=== PATIENT | male | born 1985 ===

== ENCOUNTER 2020-10-05 21:43 | Emergency (ER) | payer SELFPAY ==
[2020-10-05 23:20] VITALS: BP 105/75
--- NOTE | 2020-10-05 23:42 | Event Note ---
ED Screening Note Date of service: 10/05/20 Time: 23:41 ED Screening Note: 35-year-old male with a psychiatric history presents to ED with suicidal ideation with a plan to taking pills This initial assessment/diagnostic orders/clinical plan/treatment(s) is/are subject to change based on patients health status, clinical progression and re- assessment by fellow clinical providers in the ED. Further treatment and workup at subsequent clinical providers discretion. Patient/guardian urged not to elope from the ED as their condition may be serious if not clinically assessed and managed. Initial orders include: Labs ordered.
[2020-10-05 23:54] LABS: Basophils # (Auto) 0.1 K/mm3 (0.0-0.1); Basophils % (Auto) 0.8 % (0.0-1.8); Eosinophils # (Auto) 0.1 K/mm3 (0.0-0.4); Eosinophils % (Auto) 0.6 % (0.0-4.3); Hematocrit 41.6 % (35.5-45.6); Hemoglobin 14.4 gm/dl (11.8-15.2); Lymphocytes # (Auto) 3.1 K/mm3 (1.2-5.4); Lymphocytes % (Auto) 26.3 % (13.4-35.0); Mean Corpuscular HGB Conc 35 % (32-34); Mean Corpuscular Volume 94 fl (84-94); Monocytes # (Auto) 0.9 K/mm3 (0.0-0.8); Monocytes % (Auto) 7.8 % (0.0-7.3); Platelet Count 438 K/mm3 (140-440); Red Blood Count 4.42 M/mm3 (3.65-5.03); Red Cell Distribution Width 13.1 % (13.2-15.2)
[2020-10-05 23:57] LABS: BUN/Creatinine Ratio 18; Blood Urea Nitrogen 18 mg/dL (9-20); Calcium 9.4 mg/dL (8.4-10.2); Hemolysis Index 9
== END 2020-10-06 00:45 | disposition left against medical advice (07) ==
LOC: ED 21:43
DX: F32.9 Major depressive disorder, single episode, unspecified (principal); Z53.21 Procedure and treatment not carried out due to patient leaving prior to being seen by health care provider
CPT/HCPCS: 36415; 80048; 80320; 85025; G0480

== ENCOUNTER 2020-10-06 07:48 | Emergency (ER) | payer SELFPAY ==
--- NOTE | 2020-10-06 08:57 | Emergency Department Report ---
ED Psych HPI - General Chief Complaint: Psych Stated Complaint: PTSD;MENTAL HEALTH Time Seen by Provider: 10/06/20 08:51 Source: patient Mode of arrival: Ambulatory - History of Present Illness Initial Comments: This is a 35-year-old man who has a long history of bipolar disorder. He states he is compliant with his medicines to include lithium. He states his last admission to a [facility]. He only reports one other mental health admission "when I was a child". He states he saw his mental health provider last 2 weeks ago. Yesterday he told them that he had suicidal ideation. Thereby it was recommended that he come to the emergency department. He does express a desire to "hurt myself". He did not express a specific plan. MD Complaint: suicidal ideation -: Gradual, week(s) Associated Psychiatric Symptoms: suicidal ideation History of same: Yes Quality: intermittent Improves With: none Worsens With: none Associated Symptoms: denies other symptoms Treatments Prior to Arrival: none If Self Harm: admits thoughts of - Related Data Allergies Allergy/AdvReac Type Severity Reaction Status Date / Time Penicillins Allergy Unknown Verified 10/05/20 23:17 ED Review of Systems ROS: Stated complaint: PTSD;MENTAL HEALTH Other details as noted in HPI Constitutional: chills. denies: fever Eyes: denies: eye pain, vision change ENT: denies: ear pain, throat pain Respiratory: denies: cough, shortness of breath, wheezing Cardiovascular: denies: chest pain, palpitations Endocrine: no symptoms reported Gastrointestinal: denies: abdominal pain, nausea, diarrhea Genitourinary: denies: urgency, dysuria Musculoskeletal: denies: back pain, joint swelling, arthralgia Skin: denies: rash, lesions Neurological: denies: headache, weakness, paresthesias Psychiatric: denies: anxiety, depression Hematological/Lymphatic: denies: easy bleeding, easy bruising ED Past Medical Hx - Past Medical History Previous Medical History?: Yes Hx Psychiatric Treatment: Yes (PTSD, manic bipolar) - Surgical History Past Surgical History?: No - Social History Smoking Status: Current Every Day Smoker Substance Use Type: Heroin ED Physical Exam - General Limitations: No Limitations General appearance: alert, in no apparent distress - Head Head exam: Present: atraumatic, normocephalic - Eye Eye exam: Present: normal appearance. Absent: scleral icterus - ENT ENT exam: Present: mucous membranes moist - Neck Neck exam: Present: normal inspection - Respiratory Respiratory exam: Present: normal lung sounds bilaterally. Absent: respiratory distress - Cardiovascular Cardiovascular Exam: Present: regular rate, normal rhythm. Absent: systolic murmur, diastolic murmur, rubs, gallop - GI/Abdominal GI/Abdominal exam: Present: soft, normal bowel sounds. Absent: distended, tenderness, guarding, rebound - Rectal Rectal exam: Present: deferred - Extremities Exam Extremities exam: Present: normal inspection - Back Exam Back exam: Present: normal inspection - Neurological Exam Neurological exam: Present: alert, oriented X3, CN II-XII intact. Absent: motor sensory deficit - Psychiatric Psychiatric exam: Present: normal affect, normal mood - Skin Skin exam: Present: warm, dry, intact, normal color. Absent: rash ED Course Vital Signs 10/06/20 07:50 Temperature 98.0 F Pulse Rate 72 Respiratory 18 Rate Blood Pressure 125/74 O2 Sat by Pulse 100 Oximetry ED Medical Decision Making - Lab Data Result diagrams: 10/06/20 09:33 10/06/20 09:33 Critical care attestation.: If time is entered above; I have spent that time in minutes in the direct care of this critically ill patient, excluding procedure time. ED Disposition Clinical Impression: Schizophrenia, paranoid type, Medical clearance for psychiatric admission, Suicidal ideation Disposition: [id number]/[id number] PSY HOSP/PSY UNIT Is pt being admited?: No Does the pt Need Aspirin: No Condition: Stable Referrals: PRIMARY CARE, [Primary Care Provider] - 3-5 Days Time of Disposition: 15:14
[2020-10-06 10:26] LABS: Basophils # (Auto) 0.1 K/mm3 (0.0-0.1); Basophils % (Auto) 0.6 % (0.0-1.8); Eosinophils % (Auto) 0.4 % (0.0-4.3); Hematocrit 44.1 % (35.5-45.6); Lymphocytes # (Auto) 2.2 K/mm3 (1.2-5.4); Lymphocytes % (Auto) 18.7 % (13.4-35.0); Mean Corpuscular HGB Conc 34 % (32-34); Mean Corpuscular Volume 95 fl (84-94); Monocytes # (Auto) 0.8 K/mm3 (0.0-0.8); Monocytes % (Auto) 6.6 % (0.0-7.3); Platelet Count 437 K/mm3 (140-440); Red Blood Count 4.63 M/mm3 (3.65-5.03); Red Cell Distribution Width 13.2 % (13.2-15.2)
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
[2020-10-06 10:54] LABS: BUN/Creatinine Ratio 19; Blood Urea Nitrogen 17 mg/dL (9-20); Calcium 9.4 mg/dL (8.4-10.2); Hemolysis Index 2
[2020-10-06] MEDS: LITHIUM CARBONATE 300 MG CAP PO SCH ×2 (14:32→21:37)
[2020-10-06 18:24] LABS: Benzodiazepines Screen,Urine Negative; Cocaine Screen,Urine Negative; Methadone Screen,Urine Negative; Opiate Screen,Urine Negative
[2020-10-06 18:40] LABS: Amphetamine Screen,Urine Positive; Cannabinoid Screen,Urine Positive
[2020-10-06 19:33] LABS: Bilirubin,Urine NEG (Negative); Blood,Urine NEG (Negative); Calcium Oxalate Crystals,Urine 1+; Color,Urine Yellow (Yellow); Mucus,Urine FEW /HPF; Protein,Urine <15 mg/dL mg/dL (Negative)
[2020-10-06] MEDS: risperiDONE 0.25 MG TAB PO SCH (21:38)
[2020-10-06] MEDS: traZODone 50 MG TAB PO SCH (21:39)
[2020-10-07] MEDS: LITHIUM CARBONATE 300 MG CAP PO SCH ×3 (09:25→21:46)
[2020-10-07] MEDS: risperiDONE 0.25 MG TAB PO SCH ×2 (09:56→21:47)
[2020-10-07 21:01] LABS: Basophils # (Auto) 0.1 K/mm3 (0.0-0.1); Basophils % (Auto) 1.3 % (0.0-1.8); Eosinophils % (Auto) 0.4 % (0.0-4.3); Lymphocytes # (Auto) 2.6 K/mm3 (1.2-5.4); Lymphocytes % (Auto) 25.8 % (13.4-35.0); Mean Corpuscular HGB Conc 36 % (32-34); Mean Corpuscular Volume 93 fl (84-94); Monocytes # (Auto) 0.6 K/mm3 (0.0-0.8); Monocytes % (Auto) 5.8 % (0.0-7.3); Platelet Count 436 K/mm3 (140-440); Red Blood Count 4.39 M/mm3 (3.65-5.03); Red Cell Distribution Width 12.7 % (13.2-15.2)
[2020-10-07 21:04] LABS: Hematocrit 40.9 % (35.5-45.6); Hemoglobin 14.7 gm/dl (11.8-15.2)
[2020-10-07] MEDS: traZODone 50 MG TAB PO SCH (21:48)
[2020-10-08] MEDS: LITHIUM CARBONATE 300 MG CAP PO SCH ×2 (09:47→14:48)
[2020-10-08] MEDS: risperiDONE 0.25 MG TAB PO SCH (09:47)
[2020-10-08 20:07] VITALS: BP 132/78
== END 2020-10-08 19:59 ==
LOC: ED 07:48
DX: F20.0 Paranoid schizophrenia (principal); F17.200 Nicotine dependence, unspecified, uncomplicated; Z04.6 Encounter for general psychiatric examination, requested by authority; Z88.0 Allergy status to penicillin; Z20.828 Contact with and (suspected) exposure to other viral communicable diseases
CPT/HCPCS: 36415; 80048; 80178; 80307; 81001; 85025; 93005; 99285; U0003; 80320; G0480

== ENCOUNTER 2022-03-20 13:45 | Emergency (ER) | payer SELFPAY ==
[2022-03-20 15:34] VITALS: BP 130/90
[2022-03-20] MEDS ORDERED: TETANUS,DIPH,PERTUSS(ACELL) VACCINE 0.5 ML SYRINGE IM ONE (21:00)
[2022-03-20] MEDS ORDERED: SULFAMETHOXAZOLE/TRIMETHOPRIM 800/160MG DS TAB PO ONE (21:00)
[2022-03-20] MEDS ORDERED: CLINDAMYCIN 300 MG CAP PO ONE (21:00)
[2022-03-20] MEDS ORDERED: traMADol 50 MG TAB PO ONE (21:00)
--- NOTE | 2022-03-20 21:10 | Emergency Department Report ---
ED Animal Bite HPI - General Chief Complaint: Animal Bite Stated Complaint: DOMESTIC DOG ATTACK Time Seen by Provider: 03/20/22 21:00 Source: patient Mode of arrival: Ambulatory Limitations: No Limitations - History of Present Illness Initial Comments: Patient 36-year-old male, who is penicillin allergic, who presents for right forearm dog bite today. States he was putting his dog in the garage grabbed a dog stroker, and dog snapped his arm x1. This is a domestic dog, rabies shots are up-to-date. Bleeding was controlled on scene by direct pressure patient states 4 puncture wounds. There is no nerve muscle or tendon damage range of motion remains intact there is minimal swelling. MD Complaint: animal bite - Related Data Previous Rx's Medication Instructions Recorded Last Taken Type Clindamycin [Clindamycin CAP] 300 mg PO Q8H 7 Days #21 cap 03/20/22 Unknown Rx Sulfamethoxazole/Trimethoprim 1 each PO BID 7 Days #14 tab 03/20/22 Unknown Rx [Bactrim DS TAB] traMADoL [Ultram] 50 mg PO Q6HR PRN #12 tablet 03/20/22 Unknown Rx Allergies Allergy/AdvReac Type Severity Reaction Status Date / Time Penicillins Allergy Unknown Verified 10/05/20 23:17 ED Review of Systems ROS: Stated complaint: DOMESTIC DOG ATTACK Other details as noted in HPI Constitutional: denies: chills, fever Eyes: denies: eye pain, eye discharge, vision change ENT: denies: ear pain, throat pain Respiratory: denies: cough, shortness of breath, wheezing Cardiovascular: denies: chest pain, palpitations Endocrine: no symptoms reported Gastrointestinal: denies: abdominal pain, nausea, diarrhea Genitourinary: denies: urgency, dysuria Musculoskeletal: other (Dog for puncture wound) Skin: denies: rash, lesions Neurological: denies: headache, weakness, paresthesias Psychiatric: denies: anxiety, depression Hematological/Lymphatic: denies: easy bleeding, easy bruising ED Past Medical Hx - Past Medical History Previous Medical History?: Yes Hx Psychiatric Treatment: Yes (PTSD, manic bipolar) Hx Asthma: Yes - Surgical History Past Surgical History?: No - Social History Smoking Status: Current Every Day Smoker Substance Use Type: None - Medications Home Medications: Home Medications Medication Instructions Recorded Confirmed Last Taken Type Clindamycin [Clindamycin CAP] 300 mg PO Q8H 7 Days #21 cap 03/20/22 Unknown Rx Sulfamethoxazole/Trimethoprim 1 each PO BID 7 Days #14 tab 03/20/22 Unknown Rx [Bactrim DS TAB] traMADoL [Ultram] 50 mg PO Q6HR PRN #12 tablet 03/20/22 Unknown Rx ED Physical Exam - General Limitations: No Limitations General appearance: alert, in no apparent distress - Head Head exam: Present: normocephalic, normal inspection - Eye Eye exam: Present: normal appearance, EOMI Pupils: Present: normal accommodation - ENT ENT exam: Present: mucous membranes moist - Neck Neck exam: Present: normal inspection, full ROM. Absent: tenderness, lymphadenopathy - Respiratory Respiratory exam: Present: normal lung sounds bilaterally. Absent: respiratory distress, wheezes, stridor, chest wall tenderness - Cardiovascular Cardiovascular Exam: Present: regular rate, normal rhythm, normal heart sounds. Absent: systolic murmur, diastolic murmur, rubs, gallop - GI/Abdominal GI/Abdominal exam: Present: soft, normal bowel sounds. Absent: distended, tenderness - Rectal Rectal exam: Present: deferred - Extremities Exam Extremities exam: Present: normal inspection, normal capillary refill - Expanded Upper Extremity Exam Right Forearm Wrist exam: Present: tenderness, swelling, erythema. Absent: abrasion, laceration, ecchymosis, deformity, crepidus, dislocation, tenderness over anatomical snuff box, pain with axial thumb loading Hand Wrist exam: Present: full ROM. Absent: tenderness, swelling Neuro motor exam: Present: wrist extension intact, thumb opposition intact, thumb IP flexion intact, thumb adduction intact, fingers 2-5 abduction intact Neurosensory exam: Present: radial nerve intact Vascular: Present: normal capillary refill - Back Exam Back exam: Present: normal inspection, full ROM. Absent: CVA tenderness (R), CVA tenderness (L) - Neurological Exam Neurological exam: Present: alert, oriented X3, CN II-XII intact, normal gait, reflexes normal. Absent: motor sensory deficit - Expanded Neurological Exam Expanded Patient oriented to: Present: person, place, time Speech: Present: fluid speech Motor strength exam: RUE: 5, LUE: 5, RLE: 5, LLE: 5 Best Eye Response ([place]): (4) open spontaneously Best Motor Response ([place]): (6) obeys commands Best Verbal Response ([place]): (5) oriented [place] Total: 15 - Psychiatric Psychiatric exam: Present: normal affect, normal mood - Skin Skin exam: Present: warm, dry, normal color, other (Puncture wounds x4 right anterior wrist for no nerve muscle or tendon damage range of motion is intact to direct opposition. Distal pulses +2 [employer] E[employer]IST less than 3 seconds no pain to simulated axial thumb loading. No xiphoid tenderness. No active bleeding.). Absent: rash ED Course Vital Signs 03/20/22 15:31 Temperature 98.4 F Pulse Rate 83 Respiratory 18 Rate Blood Pressure 130/90 O2 Sat by Pulse 100 Oximetry - Reevaluation(s) Reevaluation #1: 03/20/22 21:11 Bacitracin dressing applied to right wrist after copious washing with soap and water. Patient given home wound care instructions patient verbalized u nderstanding of same. Critical care attestation.: If time is entered above; I have spent that time in minutes in the direct care of this critically ill patient, excluding procedure time. ED Disposition Clinical Impression: Dog bite of right forearm Qualifiers: Encounter type: initial encounter Qualified Code(s): S51.851A - Open bite of right forearm, initial encounter; W54.0XXA - Bitten by dog, initial encounter Disposition: 01 HOME / SELF CARE / HOMELESS Is pt being admited?: No Does the pt Need Aspirin: No Condition: Stable Instructions: Animal Bite, Adult, [id number], Wound Care, Adult Additional Instructions: Take medications as prescribed, wound care daily as directed. Follow-up with your primary care doctor in 2 to 3 days. Return to emergency department should symptoms worsen. Prescriptions: Sulfamethoxazole/Trimethoprim [Bactrim DS TAB] 1 each PO BID 7 Days #14 tab Clindamycin [Clindamycin CAP] 300 mg PO Q8H 7 Days #21 cap traMADoL [Ultram] 50 mg PO Q6HR PRN #12 tablet PRN Reason: Pain Referrals: [facility] [Provider Group] - 3-5 Days Forms: Work/School Release Form(ED) Time of Disposition: 21:16
--- NOTE | 2022-03-20 22:39 | XRay Report ---
Right forearm, 2 views HISTORY: Dogbite COMPARISON: None FINDINGS: There is evidence of soft tissue injury of the distal forearm. No radiopaque foreign body. No acute fracture or malalignment. Signer Name: See Ang MD Signed: 03/20/2022 10:34 PM Workstation Name: [id number]
== END 2022-03-20 23:48 | disposition home or self-care (01) ==
LOC: ED 13:45
DX: S51.851A Open bite of right forearm, initial encounter (principal); F43.10 Post-traumatic stress disorder, unspecified; F30.9 Manic episode, unspecified; J45.909 Unspecified asthma, uncomplicated; F17.290 Nicotine dependence, other tobacco product, uncomplicated; W54.0XXA Bitten by dog, initial encounter; Y93.89 Activity, other specified; Y92.89 Other specified places as the place of occurrence of the external cause; Y99.8 Other external cause status
CPT/HCPCS: 90471; 90715; 99283